=== PATIENT | male | born 1950 | race African-American/Black ===

== ENCOUNTER 2017-05-27 20:07 | Emergency (ER) | payer MEDICARE, OTHER ==
[~2017-05-27] VITALS: Ht 188 cm; Wt 92.5 kg
[2017-05-27 20:15] VITALS: BP 169/100
[2017-05-27 21:35] LABS: BACTERIA,URINE 0 /HPF (0-FEW); BILIRUBIN,URINE NEG (NEG); CLARITY,URINE CLEAR; COLOR,URINE YELLOW; GLUCOSE,URINE NEG (NEG); NITRITE,URINE NEG (NEG); RBC,URINE 20-40 /HPF (0-2); SQUAMOUS EPITHELIAL CELL,UR OCC /LPF; UROBILINOGEN,URINE 0.2 mg/dL (0.2 mg/dL); WBC,URINE RARE /HPF (0-4)
--- NOTE | 2017-05-27 21:47 | PHYS DOC ---
General Chief Complaint: URINARY RETENTION Stated Complaint: UNABLE TO URINATE Time Seen by MD: 20:12 Source: patient Exam Limitations: no limitations Problems: History of Present Illness Initial Comments Patient is a 66-year-old male who comes in the ED complaining of urinary retention. Patient states that he has history of BPH and family history of prostate cancer. He follows with a urologist at and has had some urinary hesitancy symptoms in the past but never any retention. He states that he's been unable to pass anything but very small amounts of urine for the past 6 hours. He complains of lower abdominal fullness and discomfort described as moderate to severe worse with certain positions better he presumes after voiding. He denies any urinary discharge no nausea vomiting no fever chills chest pain or trouble breathing. No pre-arrival treatment on arrival his blood pressure is elevated 169/100 and he appears to be very uncomfortable. Patient denies unexplained weight loss and night sweats, denies hematuria. Timing/Duration: 4-6 hours Severity: severe Modifying Factors: worse with movement, improves with other Associated Symptoms: other Past Medical History Medical History: other (BPH) Surgical History: other (foot surgery) Social History Smoker: cigarettes Alcohol: occasionally Drugs: none Review of Systems Constitutional: denies chills, denies diaphoresis, denies malaise Respiratory: denies cough, denies shortness of breath Cardiovascular: denies chest pain, denies palpitations, denies syncope Gastrointestinal: see HPI Genitourinary: see HPI Musculoskeletal: denies back pain, denies joint swelling, denies neck pain Psychiatric/Neurological: denies headache, denies numbness, denies paresthesia Hematologic/Lymphatic: denies blood clots, denies easy bleeding, denies easy bruising Physical Exam General Appearance: WD/WN, moderate distress Ear, Nose, Throat: hearing grossly normal, normal ENT inspection Neck: non-tender, supple Respiratory: normal breath sounds, no respiratory distress Cardiovascular: normal peripheral pulses, regular rate, rhythm Gastrointestinal: normal bowel sounds, no organomegaly, no pulsatile mass, other (suprapubic tenderness and distention relieved by bladder drainage) Back: no CVA tenderness, no vertebral tenderness Extremities: normal range of motion, non-tender Neurologic/Psychiatric: snow maker II-XII nml as tested, no motor/sensory deficits, alert, oriented x 3 Orders, Labs, Meds RN inserted Coates with rapid 1200 mL urine output. Urinalysis positive moderate blood Patient rechecked after urine output decreased. He reports complete resolution of his symptoms. I discussed options of leaving Coates in place to be removed by his urologist versus Coates removal here and return if symptoms worsen. Patient states that he called his urologist earlier today and intends to follow-up with him tomorrow. He requests removal of the Coates now he will return as needed. I discussed smoking cessation as well as signs and symptoms to monitor and urgent indications to return. Patient's questions were answered and he expressed agreement and understanding with the treatment plan. Departure Time of Disposition: 21:45 Disposition: 01 HOME, SELF-CARE Diagnosis: urinary retention, hematuria Condition: IMPROVED Patient Instructions: Urinary Retention, Acute, Male, [id number] Additional Instructions: Continue current medications. 1200+ ML urine output. As discussed you have requested that we remove the Coates catheter and you intend to follow-up with your urologist tomorrow. The blood in your urine is likely due to the catheter insertion but needs to be followed up on. If you're not able to get in with your urologist tomorrow then follow-up with Dr. Galindo or return to the emergency department. PEDRO LUIS DAVIES DO May 27, 2017 21:47
[2017-05-28] MEDS ORDERED: CIPR250T30 PO (10:04)
== END 2017-05-27 21:58 | disposition home or self-care (01) ==
LOC: ER 20:07
DX: R33.9 Retention of urine, unspecified (principal); R31.9 Hematuria, unspecified; F17.210 Nicotine dependence, cigarettes, uncomplicated; N40.1 Benign prostatic hyperplasia with lower urinary tract symptoms
CPT/HCPCS: 51702; 81001; 99284-25

== ENCOUNTER 2017-05-28 08:55 | Emergency (ER) | payer MEDICARE, OTHER ==
[~2017-05-28] VITALS: Ht 188 cm; Wt 92.5 kg
[2017-05-28] MEDS ORDERED: CIPR250T30 PO (10:04)
--- NOTE | 2017-05-28 10:04 | PHYS DOC ---
Past History Past Medical History: Prostatitis, Other Additional Past Medical Histor: BPH Past Surgical History: Other Alcohol Use: Occasionally Drug Use: None Adult General Chief Complaint Chief Complaint: URINARY RETENTION HPI HPI 66-year-old male patient with history of enlarged prostate state he was not able to urinate since yesterday morning and was seen in this emergency room last night and had Coates catheter placement with 1400 mL urine output. Patient sent home without urine catheter but was not able to urinate and returned to ER because was not able to get to his urologist. Patient complaining of discomfort feeling in lower abdomen without fever and chills, nausea and vomiting, shortness of breath. Patient currently taking medication for BPH given by his urologist at [facility]. Review of Systems Review of Systems Constitutional: Denies fever or chills [] Eyes: Denies change in visual acuity, redness, or eye pain [] HENT: Denies nasal congestion or sore throat [] Respiratory: Denies cough or shortness of breath [] Cardiovascular: No additional information not addressed in HPI [] GI: Denies abdominal pain, nausea, vomiting, bloody stools or diarrhea [] : Reports urinary retention Musculoskeletal: Denies back pain or joint pain [] Integument: Denies rash or skin lesions [] Neurologic: Denies headache, focal weakness or sensory changes [] Endocrine: Denies polyuria or polydipsia [] All other systems were reviewed and found to be within normal limits, except as documented in this note. Allergies Allergies Allergies Coded Allergies Type Severity Reaction Last Updated Verified typhoid vaccine Allergy Unknown 05/28/17 Yes Physical Exam Physical Exam Constitutional: Well developed, well nourished, mild distress, non-toxic appearance. [] HENT: Normocephalic, atraumatic, bilateral external ears normal, oropharynx moist, no oral exudates, nose normal. [] Eyes: PERRLA, EOMI, conjunctiva normal, no discharge. [] Neck: Normal range of motion, no tenderness, supple, no stridor. [] Cardiovascular:Heart rate regular rhythm, no murmur [] Lungs & Thorax: Bilateral breath sounds clear to auscultation [] Abdomen: Bowel sounds normal, soft, no tenderness, no masses, no pulsatile masses, mild guarding in suprapubic area. [] Skin: Warm, dry, no erythema, no rash. [] Back: No tenderness, no CVA tenderness. [] Extremities: No tenderness, no cyanosis, no clubbing, ROM intact, no edema. [] Neurologic: Alert and oriented X 3, normal motor function, normal sensory function, no focal deficits noted. [] Psychologic: Affect normal, judgement normal, mood normal. [] EKG EKG [] Radiology/Procedures Radiology/Procedures [] Course & Med Decision Making Course & Med Decision Making Pertinent Labs reviewed. (See chart for details) 66-year-old male patient with history of BPH and is sent urinary retention in ER visit last night presented to ER with another episode of urinary retention since he left the hospital. Coates catheter was placed and 1100 mL of nonbloody urine was drained gradually and patient felt better. UA did not show infection but prophylactic Cipro was started and patient instructed to follow up with his urologist in 2 or 3 days. Dragon Disclaimer Dragon Disclaimer This electronic medical record was generated, in whole or in part, using a voice recognition dictation system. Departure Departure: Impression: Primary Impression: Acute urinary retention Additional Impressions: History of BPH Hematuria Disposition: HOME, SELF-CARE (At 1000) Condition: IMPROVED Additional Instructions: Follow-up with your urologist at [facility] in 2-4 days Scripts Ciprofloxacin Hcl (CIPRO) 250 Mg Tablet 1 TAB PO BID, #6 TAB Prov: BETTE HORNER MD 05/28/17 Problem Qualifiers BETTE HORNER MD May 28, 2017 10:04
[2017-05-28 10:07] LABS: BILIRUBIN,URINE NEG (NEG); CLARITY,URINE CLEAR; COLOR,URINE YELLOW; GLUCOSE,URINE NEG (NEG); NITRITE,URINE NEG (NEG); UROBILINOGEN,URINE 0.2 mg/dL (0.2 mg/dL)
[2017-05-28 10:08] LABS: BACTERIA,URINE 0 /HPF (0-FEW); WBC,URINE 0 /HPF (0-4)
[2017-05-28 10:20] VITALS: BP 148/82
== END 2017-05-28 10:20 | disposition home or self-care (01) ==
LOC: ER 08:55
DX: R33.8 Other retention of urine (principal); R31.9 Hematuria, unspecified; N40.1 Benign prostatic hyperplasia with lower urinary tract symptoms; Z88.7 Allergy status to serum and vaccine
CPT/HCPCS: 51702; 81001; 99284-25

== ENCOUNTER 2017-06-08 08:31 | Emergency (ER) | payer MEDICARE, OTHER ==
[~2017-06-08] VITALS: Ht 188 cm; Wt 95.3 kg
[~2017-06-08 08:31] MED LIST: CIPR250T30 PO
--- NOTE | 2017-06-08 08:57 | ED.ADGEN ---
Past History Past Medical History: Prostatitis, Other Additional Past Medical Histor: BPH; urinary retention Past Surgical History: Other Alcohol Use: Occasionally Drug Use: None Adult General HPI HPI Patient is a 66 year old male with concerns about his aguilera. This is a 66-year-old male with recent placement of Aguilera catheter for urinary retention. He recently finished a course of antibiotics. He is concerned he may be having a urinary tract infection because he is findings discharge on his underwear. He is not having any pain. He has medicines to help with bladder spasms; aguilera is not causing him any discomfort. No fevers or abdominal pain. His Aguilera is draining clear urine. Review of Systems Review of Systems Constitutional: Denies fever or chills Respiratory: Denies cough or shortness of breath Cardiovascular: No additional information not addressed in HPI GI: Denies abdominal pain, nausea, vomiting, bloody stools or diarrhea : HPI Musculoskeletal: Denies back pain or joint pain Integument: Denies rash or skin lesions Neurologic: Denies headache, focal weakness or sensory changes Endocrine: Denies polyuria or polydipsia All other systems were reviewed and found to be within normal limits, except as documented in this note. Allergies Allergies Allergies Coded Allergies Type Severity Reaction Last Updated Verified typhoid vaccine Allergy Unknown 05/28/17 Yes Physical Exam Physical Exam Constitutional: Well developed, well nourished, no acute distress, non-toxic appearance. HENT: Normocephalic, atraumatic, Eyes: PERRLA, EOMI, conjunctiva normal, no discharge. Neck: Normal range of motion, Cardiovascular:Heart rate regular rhythm, no murmur Lungs & Thorax: Bilateral breath sounds clear to auscultation Abdomen: Bowel sounds normal, soft, no tenderness, no masses, no pulsatile masses. Normal uncircumcised male genitalia; foreskin in normal position. No signs of balinitis. Skin: Warm, dry, no erythema, no rash. Back: No tenderness, no CVA tenderness. Extremities: No tenderness, no cyanosis, no clubbing, ROM intact, no edema. Neurologic: Alert and oriented X 3, Psychologic: Affect normal, judgement normal, mood normal. Current Patient Data Vital Signs Vital Signs Date Time Temp Pulse Resp B/P (MAP) Pulse Ox O2 Delivery O2 Flow Rate FiO2 06/08/17 08:40 97.8 90 20 97 Room Air Lab Results Laboratory Tests Test 06/08/17 08:50 Urine Collection Type Unknown Urine Color Yellow Urine Clarity Clear Urine pH 5.5 Urine Specific [place] 1.010 Urine Protein Trace (NEG-TRACE) Urine Glucose (UA) 100 mg/dL (NEG) Urine Ketones (Stick) Neg mg/dL (NEG) Urine Blood Large (NEG) Urine Nitrite Neg (NEG) Urine Bilirubin Neg (NEG) Urine Urobilinogen Dipstick 0.2 mg/dL (0.2 mg/dL) Urine Leukocyte Esterase Trace (NEG) Urine RBC 20-40 /HPF (0-2) Urine WBC 1-4 /HPF (0-4) Urine Squamous Epithelial Cells Occ /LPF Urine Bacteria Few /HPF (0-FEW) Urine Mucus Slight /LPF EKG EKG [] Radiology/Procedures Radiology/Procedures [] Course & Med Decision Making Course & Med Decision Making Pertinent Labs and Imaging studies reviewed. (See chart for details) 55 ML of urine on bladder scan, thus no retention. Will check urine. UA with few bacteria. I will place on Bactrim BID for 7 days. Ask for PMD follow up in 2-3 days. I do not see an indication for labs today other than UA. Dx: urinary retention, UTI Final Impression Final Impression Urinary retention, UTI[] Problems: Dragon Disclaimer Dragon Disclaimer This electronic medical record was generated, in whole or in part, using a voice recognition dictation system. JEANINE YAN MD Jun 08, 2017 08:57
[2017-06-08 09:12] LABS: BILIRUBIN,URINE NEG (NEG); CLARITY,URINE CLEAR; COLOR,URINE YELLOW; GLUCOSE,URINE 100 mg/dL (NEG)
[2017-06-08 09:13] LABS: BACTERIA,URINE FEW /HPF (0-FEW); NITRITE,URINE NEG (NEG); RBC,URINE 20-40 /HPF (0-2); SQUAMOUS EPITHELIAL CELL,UR OCC /LPF; UROBILINOGEN,URINE 0.2 mg/dL (0.2 mg/dL)
[2017-06-08] MEDS ORDERED: SULF1TAB24 PO (09:20)
[2017-06-08 09:30] VITALS: BP 151/73
== END 2017-06-08 09:33 | disposition home or self-care (01) ==
LOC: ER 08:31
DX: N39.0 Urinary tract infection, site not specified (principal); N40.1 Benign prostatic hyperplasia with lower urinary tract symptoms; Z88.7 Allergy status to serum and vaccine
CPT/HCPCS: 81001; 87086; 87186; 99284

== ENCOUNTER 2019-07-09 15:05 | Emergency (ER) | payer MEDICARE, OTHER ==
[~2019-07-09] VITALS: Ht 188 cm; Wt 94.3 kg
[~2019-07-09 15:05] MED LIST changes: +SULF1TAB24 PO
--- NOTE | 2019-07-09 16:02 | PHYS DOC ---
Past History Past Medical History: Other Additional Past Medical Histor: ENLARGED PROSTATE Past Surgical History: Other Additional Past Surgical Histo: 2 KNEE, HAMMERTOE Additional Smoking Information: 1/3 PACK Alcohol Use: Occasionally Drug Use: None Adult General Chief Complaint Chief Complaint: URINARY RETENTION [facility] 68-year-old male presents with urinary retention. When he woke up this morning he was feeling fine. At work, he had the urge to urinate and could only go small amount of the time. This occurred several times. The patient had increasing lower abdominal discomfort. He has had this before so he assumed he was retaining urine and came emergency room. He has been feeling fine. No other symptoms. He denies fever or chills. He did recently start Flexeril has been taking them for about 4 days. Review of Systems Review of Systems Constitutional: Denies fever or chills [] Eyes: Denies change in visual acuity, redness, or eye pain [] HENT: Denies nasal congestion or sore throat [] Respiratory: Denies cough or shortness of breath [] Cardiovascular: No additional information not addressed in HPI [] GI: Denies abdominal pain, nausea, vomiting, bloody stools or diarrhea [] : Urinary retention[] Musculoskeletal: Denies back pain or joint pain [] Integument: Denies rash or skin lesions [] Neurologic: Denies headache, focal weakness or sensory changes [] Endocrine: Denies polyuria or polydipsia [] All other systems were reviewed and found to be within normal limits, except as documented in this note. Allergies Allergies Allergies Coded Allergies Type Severity Reaction Last Updated Verified typhoid vaccine Allergy Unknown 05/28/17 Yes Physical Exam Physical Exam Constitutional: Well developed, well nourished, no acute distress, non-toxic appearance. [] HENT: Normocephalic, atraumatic, bilateral external ears normal, oropharynx moist, no oral exudates, nose normal. [] Eyes: PERRLA, EOMI, conjunctiva normal, no discharge. [] Neck: Normal range of motion, no tenderness, supple, no stridor. [] Cardiovascular:Heart rate regular rhythm, no murmur [] Lungs & Thorax: Bilateral breath sounds clear to auscultation [] Abdomen: Bowel sounds normal, soft, no tenderness, no masses, no pulsatile masses. [] Skin: Warm, dry, no erythema, no rash. [] Back: No tenderness, no CVA tenderness. [] Extremities: No tenderness, no cyanosis, no clubbing, ROM intact, no edema. [] Neurologic: Alert and oriented X 3, normal motor function, normal sensory funct ion, no focal deficits noted. [] Psychologic: Affect normal, judgement normal, mood normal. [] : aguilera catheter in place Current Patient Data Vital Signs Vital Signs Date Time Temp Pulse Resp B/P (MAP) Pulse Ox O2 Delivery O2 Flow Rate FiO2 07/09/19 15:10 97.6 93 20 97 Room Air EKG EKG [] Radiology/Procedures Radiology/Procedures [] Course & Med Decision Making Course & Med Decision Making Pertinent Labs and Imaging studies reviewed. (See chart for details) The patient's bladder scan showed 968 mL. I was away from the emergency room at the hospital for an intubation and so the staff went ahead and placed a Aguilera. I was unable to physical exam until after the catheter. The patient did not have any current pain on exam. He had good output in the Aguilera catheter. Basic labs and urinalysis are pending. The patient would like to leave the catheter in until he sees urology. He made an appointment this morning before coming to the ER. Patient's labs are unremarkable. His urinalysis is negative for infection. He is stable for discharge at this time. [] Dragon Disclaimer Dragon Disclaimer This electronic medical record was generated, in whole or in part, using a voice recognition dictation system. Departure Departure: Impression: Primary Impression: Urinary retention Disposition: HOME, SELF-CARE Condition: IMPROVED Referrals: PCP,UNKNOWN (PCP) Patient Instructions: Aguilera Catheter Care, Adult, Urinary Retention, Acute, Male, [id number] MERRY MCNAIR DO Jul 09, 2019 16:02
[2019-07-09 16:30] LABS: BASO # 0.1 x10^3/uL (0.0-0.2); BASO % 1 % (0-3); EOS # 0.1 x10^3/uL (0.0-0.7); EOS % 1 % (0-3); HEMATOCRIT 41.5 % (39.0-53.0); HEMOGLOBIN 13.7 g/dL (13.0-17.5); LYMPH # 1.6 x10^3/uL (1.0-4.8); LYMPH % 20 % (24-48); MEAN CORPUSCULAR HEMOGLOBIN 31 pg (25-35); MEAN CORPUSCULAR HGB CONC 33 g/dL (31-37); MEAN CORPUSCULAR VOLUME 93 fL (79-100); MONO # 0.5 x10^3/uL (0.0-1.1); MONO % 6 % (0-9); NEUT # 5.8 x10^3uL (1.8-7.7); NEUT % 73 % (31-73); PLATELET COUNT 261 x10^3/uL (140-400); RED BLOOD COUNT 4.47 x10^6/uL (4.30-5.70); RED CELL DISTRIBUTION WIDTH 13.9 % (11.5-14.5)
[2019-07-09 16:43] LABS: CREATININE 0.9 mg/dL (0.7-1.3); GFR 101.2; POTASSIUM 4.6 mmol/L (3.5-5.1)
[2019-07-09 16:45] LABS: BACTERIA,URINE 0 /HPF (0-FEW); BILIRUBIN,URINE NEG (NEG); CLARITY,URINE HAZY; COLOR,URINE AMBER; GLUCOSE,URINE NEG (NEG); NITRITE,URINE NEG (NEG); SQUAMOUS EPITHELIAL CELL,UR OCC /LPF; UROBILINOGEN,URINE 0.2 mg/dL (0.2 mg/dL); WBC,URINE 0 /HPF (0-4)
[2019-07-09 16:49] LABS: ALBUMIN 3.6 g/dL (3.4-5.0); ALBUMIN/GLOBULIN RATIO 1.2 (1.0-1.7); TOTAL BILIRUBIN 0.6 mg/dL (0.2-1.0); TOTAL PROTEIN 6.7 g/dL (6.4-8.2)
[2019-07-09 17:35] VITALS: BP 147/81
== END 2019-07-09 17:36 | disposition home or self-care (01) ==
LOC: ER 15:05
DX: R33.9 Retention of urine, unspecified (principal); R39.15 Urgency of urination; F17.200 Nicotine dependence, unspecified, uncomplicated; Z88.7 Allergy status to serum and vaccine
CPT/HCPCS: 36415; 51702; 80053; 81001; 85025; 99284

== ENCOUNTER → 2019-10-07 | Outpatient (CLI) | payer MEDICARE, OTHER ==
--- NOTE | 2019-10-07 15:47 | RAD ---
Left lower extremity venous doppler ultrasound History: Left lower extremity swelling Comparison: None Findings: Multiple grayscale, color, and duplex spectral analysis sonographic images were acquired of the left lower extremity veins to evaluate for the presence of DVT. There is normal phasicity. Normal compression, color-flow, and augmentation is demonstrated from the left common femoral to the popliteal veins. There is normal color flow of the proximal greater saphenous and profunda femoris veins. There is normal color flow of segments of the calf veins. Impression: 1. There is no evidence of deep venous thrombosis from the left common femoral to the popliteal veins. Electronically signed by: Sterling López MD (10/07/2019 3:44 PM) [id number]
--- NOTE | 2019-10-07 15:53 | RAD ---
PA and lateral views of the chest. Comparison: None. Indication: Adenopathy, smoking history Findings: Normal lung volume. No focal airspace disease. Bilateral pulmonary vascular fullness. No pleural effusion. No pneumothorax. The cardiomediastinal silhouette is normal in appearance. The great vessels are normal. No acute osseous abnormality. Impression: Bilateral pulmonary vascular fullness may relate to pulmonary edema/pulmonary hypertension. No focal consolidation. Electronically signed by: Adal Darling MD (10/07/2019 3:50 PM) [id number]
== END ==
LOC: US 15:12
PROVIDERS: ATTEND Specialist
DX: R59.9 Enlarged lymph nodes, unspecified (principal); F17.200 Nicotine dependence, unspecified, uncomplicated; M79.89 Other specified soft tissue disorders
CPT/HCPCS: 71046; 93971

== ENCOUNTER 2020-09-01 16:42 | Emergency (ER) | payer MEDICARE, OTHER ==
[~2020-09-01] VITALS: Ht 188 cm; Wt 87.3 kg
[2020-09-01 16:54] VITALS: BP 183/85
[2020-09-01] MEDS ORDERED: 0.9 % SODIUM CHLORIDE 10 ML DISP.SYRIN. IV PRN (17:00)
[2020-09-01] MEDS ORDERED: HEPARIN 25,000UTS/250ML PREMIX 250 ML IV ONE (17:07)
--- NOTE | 2020-09-01 17:09 | EKG ---
[address] [address] Test Date: 2020-09-01 Test Time: 16:50:56 Pat Name: ASMITA WHALEN Department: Room: Gender: M Newcomer Hostess: : 1950 Requested By: KELI ANDERSON Order Number: [id number] Reading MD: Measurements Intervals [place] Rate: 66 P: 42 [place]: 154 QRS: 41 QRSD: 132 T: 27 QT: 398 QTc: 419 Interpretive Statements SINUS RHYTHM RIGHT BUNDLE BRANCH BLOCK ABNORMAL ECG RI6.02 No previous ECG available for comparison
--- NOTE | 2020-09-01 17:11 | PHYS DOC ---
Past History Past Medical History: Other Additional Past Medical Histor: ENLARGED PROSTATE (KELI VELASCO DO) Past Surgical History: Other Additional Past Surgical Histo: 2 KNEE, HAMMERTOE (KRISTAKELI Betsey DE LA ROSA) Alcohol Use: Rarely Drug Use: None (KRISTAKELI Betsey DE [place] ROSA) General Adult EDM: Chief Complaint: CHEST PAIN HPI: HPI: Patient is a [age] year old [sex] who presents with [] (KELI VELASCO ) HPI: 70-year-old male presents to the emergency department with complaints of intermittent chest pain that started 2 weeks ago. Patient states he first noted some left-sided chest pain that he rated a 2/10 on 1-10 pain scale that he felt was more like indigestion because it seemed to go away after he took a 20 mg Pepcid. Patient states that these chest pain episodes have been coming back daily for the past 2 weeks, has denied any nausea vomiting or diaphoretic episodes or shortness of breath with these symptoms. States that it seemed to have gone away after taking 20 mg Pepcid or other uwgl-tlj-docdkah type indigestion medication. Today however patient states after his dental appointment at noon he noticed the same pain presented self, took another 20 mg Pepcid p.o., the pain did not go away and seemed to worsen throughout the day. Patient states at 1600 it was at its worst which she rates a 2/10 pain and/or tightness, took an additional 20 mg Pepcid p.o. noticed that there was no relief in symptoms and came to the emergency department for evaluation. Patient describes his chest pain as a pressure and not a pain. This pressure does not radiate, he has not experienced any nausea, vomiting, diarrhea, or constipation. Patient does not experience any increase or decrease in pain with movement position deep breathing or palpation type pressure to his chest. Patient denies shortness of breath, denies chest congestion or nasal congestion, denies rashes to his skin, denies increased thirst or increased urination. Patient denies homicidal or suicidal ideation. Patient's dates a surgical history of prostate reduction at [facility] earlier this year reports he is on a medication for overactive bladder that he cannot remember the name of, is on no other prescription medications or xvmm-blj-dzkwtzp medications. Patient states he has not taken an aspirin today. Patient reports he is seeing a records specialist at [facility] for lower extremity swelling, last seen 6 months ago and has an appointment next month with the same journeyman wireman. Patient denies any other physical complaints or physical injuries. (KELI ANDERSON APRN) Review of Systems: Review of Systems: Constitutional: Denies fever or chills Eyes: Denies change in visual acuity HENT: Denies nasal congestion or sore throat Respiratory: Denies cough or shortness of breath Cardiovascular: Denies chest pain or edema GI: Denies abdominal pain, nausea, vomiting, bloody stools or diarrhea : Denies dysuria Musculoskeletal: Denies back pain or joint pain Integument: Denies rash Neurologic: Denies headache, focal weakness or sensory changes Endocrine: Denies polyuria or polydipsia Lymphatic: Denies swollen glands Psychiatric: Denies depression or anxiety (KELI VELASCO DO) Review of Systems: 14 body systems of review of systems have been reviewed. See HPI for pertinent positives and negative responses, otherwise all other systems are negative, nonpertinent or noncontributory. (KELI ANDERSON APRN) Current Medications: Current Meds: Current Medications Medications (Trade) Dose Ordered Sig/Millie Start Time Stop Time Status Last Admin Dose Admin Aspirin (Aspirin Chewable) 324 mg 1X ONCE 09/01/20 17:00 09/01/20 17:01 UNV Heparin Sodium (Porcine) (Heparin Sodium) 4,000 unit 1X ONCE 09/01/20 17:00 09/01/20 17:01 UNV Sodium Chloride (Normal Saline Flush) 10 ml QSHIFT PRN 09/01/20 17:00 UNV (KELI VELASCO DO) Current Meds: Medication for overactive bladder (KELI ANDERSON APRN) Allergies: Allergies: Allergies Coded Allergies Type Severity Reaction Last Updated Verified typhoid vaccine Allergy Unknown 05/28/17 Yes (KELI VELASCO DO) Physical Exam: PE: Constitutional: Well developed, well nourished, no acute distress, non-toxic appearance. [] HENT: Normocephalic, atraumatic, bilateral external ears normal, oropharynx moist, no oral exudates, nose normal. [] Eyes: PERRLA, EOMI, conjunctiva normal, no discharge. [] Neck: Normal range of motion, no tenderness, supple, no stridor. [] Cardiovascular:Heart rate regular rhythm, no murmur [] Lungs & Thorax: Bilateral breath sounds clear to auscultation [] Abdomen: Bowel sounds normal, soft, no tenderness, no masses, no pulsatile masses. [] Skin: Warm, dry, no erythema, no rash. [] Back: No tenderness, no CVA tenderness. [] Extremities: No tenderness, no cyanosis, no clubbing, ROM intact, no edema. [] Neurologic: Alert and oriented X 3, normal motor function, normal sensory function, no focal deficits noted. [] Psychologic: Affect normal, judgement normal, mood normal. [] (KELI VELASCO DO) PE: Constitutional: Well developed, well nourished, no acute distress, non-toxic appearance. 70-year-old male in no apparent distress. HENT: Normocephalic, atraumatic, bilateral external ears normal, oropharynx moist, no oral exudates, nose normal. Eyes: PERRLA, EOMI, conjunctiva normal, no discharge. Neck: Normal range of motion, no tenderness, supple, no stridor. Cardiovascular:Heart rate regular rhythm, no murmur, heart sounds S1-S2 to auscultation. Lungs & Thorax: Bilateral breath sounds clear to auscultation all lung moreno. Chest discomfort is not reproducible to palpation or movement of upper extremities, or deep inspiration or expiration. Abdomen: Bowel sounds normal, soft, no tenderness, no masses, no pulsatile masses. Skin: Warm, dry, no erythema, no rash. Back: No tenderness, no CVA tenderness. Extremities: No tenderness, no cyanosis, no clubbing, ROM intact, no edema. Neurologic: Alert and oriented X 3, normal motor function, normal sensory function, no focal deficits noted. Psychologic: Affect normal, judgement normal, mood normal. (KELI ANDERSON APRN) Current Patient Data: Vital Signs: Vital Signs Date Time Temp Pulse Resp B/P (MAP) Pulse Ox O2 Delivery O2 Flow Rate FiO2 09/01/20 16:54 98.0 67 16 183/85 (117) 99 Room Air (KELI VELASCO DO) EKG: EKG: @ 1650 NSR at 66bpm, ST elevation III and aVF and reciprocal depressions in I and aVL and V4-V6, t wave inversion V2, QRS 132ms, QT/QTc 398/419ms, RBBB (KELI VELASCO DO) Radiology/Procedures: Radiology/Procedures: [] (KELI VLEASCO DO) Heart Score: Risk Factors: Risk Factors: DM, Current or recent (<one month) smoker, HTN, HLP, family history of CAD, obesity. Risk Scores: Score 0 - 3: 2.5% MACE over next 6 weeks - Discharge Home Score 4 - 6: 20.3% MACE over next 6 weeks - Admit for Clinical Observation Score 7 - 10: 72.7% MACE over next 6 weeks - Early Invasive Strategies (KELI VELASCO DO) C/O Chest Pain: Yes HEART Score for Chest Pain: HEART Score for Chest Pain Response (Comments) Value History Moderately Suspicious [address] Depression 2 Age > 65 2 Risk Factors No Risk Factors 0 Total 5 (KELI ANDERSON APRN) Course & Med Decision Making: Course & Med Decision Making Pertinent Labs and Imaging studies reviewed. (See chart for details) [] (KELI VELASCO DO) Course & Med Decision Making 70-year-old male, vital signs reviewed, presents to the emergency department concern for chest discomfort. Physical examination concerning for cardiorespiratory process, a cardiorespiratory ED investigation was initiated. EKG was concerning for acute STEMI, reviewed EKG with ED attending Dr. Velasco who agreed this patient should be sent to nearest [facility] for acute STEMI. A STEMI was activated with [facility] at 1655. Discussed patient case with [facility] journeyman wireman Dr. Figueredo who agreed to accept patient as STEMI transfer to [facility], EMS was alerted for emergent transfer to [facility]. Discussed transfer to [facility] with patient who was amenable to this plan. Called and discussed patient case with inpatient physician Dr. Booker who agreed to accept patient in transfer with records specialist consult. Patient labs were pending at time of transfer, patient's troponin-I not available at time of transfer therefore could not complete HEART score, patient was given 324 aspirin in the ED prior to transfer, patient was given heparin bolus in ED prior to transfer, heparin drip was not initiated related to Dr. Figueredo recommendation. Transfer forms were completed, patient was transferred to [facility] via EMS. (KELI ANDERSON APRN) Dragon Disclaimer: Dragon Disclaimer: This electronic medical record was generated, in whole or in part, using a voice recognition dictation system. (KELI VELASCO DO) Departure Departure: Impression: Primary Impression: STEMI (ST elevation myocardial infarction) Qualified Codes: I21.3 - ST elevation (STEMI) myocardial infarction of unspecified site Disposition: 02 DC/TRF OTHER SHORT TERM HOS ([facility]) Admitting Physician: Adonis Booker (Excepted patient in transfer, Dr. Figueredo excepted patient for transfer to cardiology [facility] at [facility].) (KELI ANDERSON APRN) Condition: GUARDED Referrals: BROOKLYNN HINTON MD (PCP) Critical Care Time Critical care time was 30 minutes which includes time at bedside, spent in discussion of patient's care with specialists and/or family members, with interpretation of laboratory and/or radiological studies and is exclusive of p rocedures. (KELI VELASCO DO) Attending Signature Attending Signature I have personally interviewed and examined the patient. All charts, labs, and imaging studies were reviewed. I agree with the PA/FUR CLIPPER's findings, exam, and plan. (KELI VELASCO DO) KELI VELASCO DO Sep 01, 2020 17:11 KELI ANDERSON APRN Sep 01, 2020 17:25
[2020-09-01] MEDS: HEPARIN for IV BOLUS 10,000 UNIT/10 ML VIAL. IV ONE (17:16)
[2020-09-01] MEDS: ASPIRIN CHEWABLE 81 MG TABLET. PO ONE (17:16)
[2020-09-01 17:19] LABS: BASO # 0.1 x10^3/uL (0.0-0.2); BASO % 1 % (0-3); EOS # 0.1 x10^3/uL (0.0-0.7); EOS % 1 % (0-3); HEMATOCRIT 41.1 % (39.0-53.0); HEMOGLOBIN 13.6 g/dL (13.0-17.5); LYMPH # 3.2 x10^3/uL (1.0-4.8); LYMPH % 41 % (24-48); MEAN CORPUSCULAR HEMOGLOBIN 30 pg (25-35); MEAN CORPUSCULAR HGB CONC 33 g/dL (31-37); MEAN CORPUSCULAR VOLUME 91 fL (79-100); MONO # 0.6 x10^3/uL (0.0-1.1); MONO % 8 % (0-9); NEUT # 3.9 x10^3uL (1.8-7.7); NEUT % 49 % (31-73); PLATELET COUNT 264 x10^3/uL (140-400); RED BLOOD COUNT 4.49 x10^6/uL (4.30-5.70); WHITE BLOOD COUNT 7.9 x10^3/uL (4.0-11.0)
[2020-09-01 17:33] LABS: ANION GAP 8 (6-14); BLOOD UREA NITROGEN 11 mg/dL (8-26); BUN/CREATININE RATIO 14 (6-20); CALCIUM 9.4 mg/dL (8.5-10.1); CARBON DIOXIDE 29 mmol/L (21-32); CHLORIDE 109 mmol/L (98-107); CREATININE 0.8 mg/dL (0.7-1.3); GFR 115.3; GLUCOSE 90 mg/dL (70-99); POTASSIUM 4.3 mmol/L (3.5-5.1); SODIUM 146 mmol/L (136-145)
[2020-09-01 17:50] LABS: ALBUMIN 3.9 g/dL (3.4-5.0); ALBUMIN/GLOBULIN RATIO 1.1 (1.0-1.7); ALK PHOS 86 U/L (46-116); DIRECT BILIRUBIN 0.2 mg/dL (0.0-0.2); LIPASE 60 U/L (73-393); TOTAL BILIRUBIN 0.7 mg/dL (0.2-1.0); TOTAL PROTEIN 7.6 g/dL (6.4-8.2)
[2020-09-01 19:34] LABS: ALT (SGPT) 19 U/L (16-63); AST (SGOT) 16 U/L (15-37)
== END 2020-09-01 17:13 | disposition short-term general hospital (02) ==
LOC: ER 16:42
DX: I21.3 ST elevation (STEMI) myocardial infarction of unspecified site (principal); Z88.7 Allergy status to serum and vaccine
CPT/HCPCS: 36415; 80053; 80076; 82553; 83690; 83735; 83880; 84443; 84484; 85025; 85379; 85610; 85730; 93005; 96374; 99291; J1644

== ENCOUNTER 2020-10-21 09:36 | Observation (INO) | payer MEDICARE, OTHER ==
[~2020-10-21] VITALS: Ht 188 cm; Wt 81.6 kg
[2020-10-21 10:52] LABS: BASO % 1 % (0-3); EOS % 0 % (0-3); HEMATOCRIT 43.4 % (39.0-53.0); HEMOGLOBIN 14.5 g/dL (13.0-17.5); LYMPH # 2.6 x10^3/uL (1.0-4.8); LYMPH % 35 % (24-48); MEAN CORPUSCULAR HEMOGLOBIN 31 pg (25-35); MEAN CORPUSCULAR HGB CONC 33 g/dL (31-37); MEAN CORPUSCULAR VOLUME 92 fL (79-100); MONO # 0.7 x10^3/uL (0.0-1.1); MONO % 9 % (0-9); NEUT # 4.1 x10^3uL (1.8-7.7); NEUT % 55 % (31-73); PLATELET COUNT 291 x10^3/uL (140-400); RED BLOOD COUNT 4.74 x10^6/uL (4.30-5.70); RED CELL DISTRIBUTION WIDTH 13.9 % (11.5-14.5); WHITE BLOOD COUNT 7.4 x10^3/uL (4.0-11.0)
[2020-10-21 11:05] LABS: CALCIUM 9.5 mg/dL (8.5-10.1); CREATININE 1.2 mg/dL (0.7-1.3); GFR 72.2; POTASSIUM 4.2 mmol/L (3.5-5.1)
[2020-10-21 11:15] LABS: PHOSPHORUS 3.6 mg/dL (2.6-4.7)
[2020-10-21 11:28] LABS: ALBUMIN 4.2 g/dL (3.4-5.0); ALBUMIN/GLOBULIN RATIO 1.2 (1.0-1.7); TOTAL PROTEIN 7.7 g/dL (6.4-8.2)
--- NOTE | 2020-10-21 11:55 | RAD ---
EXAM: Chest, 2 views. HISTORY: Syncope. COMPARISON: 10/07/2019. FINDINGS: 2 views of chest are obtained. There is no infiltrate, pleural effusion or pneumothorax. Th e heart is normal in size. There is hyperinflation due to inspiratory effort or emphysema. IMPRESSION: No acute pulmonary finding. Electronically signed by: Divya Fox MD (10/21/2020 11:52 AM) [id number]
--- NOTE | 2020-10-21 11:55 | EKG ---
[address] [address] Test Date: 2020-10-21 Test Time: 10:04:51 Pat Name: ASMITA WHALEN Department: Room: Gender: M Acute Care Registered Nurse: : 1950 Requested By: UZIEL MEMBRENO Order Number: [id number] Reading MD: Measurements Intervals [place] Rate: 62 P: 52 MD: 148 QRS: 76 QRSD: 144 T: 57 QT: 434 QTc: 443 Interpretive Statements SINUS RHYTHM RIGHT BUNDLE BRANCH BLOCK ABNORMAL ECG RI6.02 No previous ECG available for comparison
[2020-10-21] MEDS ORDERED: IV NORMAL SALINE 1,000ML 1,000 ML IV ONE (12:00)
--- NOTE | 2020-10-21 12:09 | EKG ---
[address] [address] Test Date: 2020-10-21 Test Time: 10:49:38 Pat Name: ASMITA WHALEN Department: Room: Gender: M Cigar Head Holer: : 1950 Requested By: UZIEL MEMBRENO Order Number: [id number] Reading MD: Measurements Intervals [place] Rate: 66 P: 61 DC: 154 QRS: 80 QRSD: 134 T: 67 QT: 426 QTc: 448 Interpretive Statements SINUS RHYTHM RIGHT BUNDLE BRANCH BLOCK ABNORMAL ECG RI6.02 No previous ECG available for comparison
[2020-10-21] MEDS ORDERED: CONTRAST GIVEN. MC PRN (12:15)
[2020-10-21] MEDS ORDERED: IOHEXOL 350 MG/ML 100 ML VIAL. IV ONE (12:15)
[2020-10-21 12:22] LABS: BILIRUBIN,URINE NEG (NEG); CLARITY,URINE CLEAR; COLOR,URINE YELLOW; GLUCOSE,URINE NEG (NEG)
[2020-10-21 12:23] LABS: BACTERIA,URINE 0 /HPF (0-FEW); NITRITE,URINE NEG (NEG); RBC,URINE 0 /HPF (0-2); SQUAMOUS EPITHELIAL CELL,UR OCC /LPF; UROBILINOGEN,URINE 0.2 mg/dL (0.2 mg/dL); WBC,URINE 0 /HPF (0-4)
--- NOTE | 2020-10-21 12:56 | RAD ---
EXAM: CT angiography, abdomen and pelvis of the chest with intravenous contrast. HISTORY: Syncope. TECHNIQUE: Computed tomographic images of the chest, abdomen and pelvis were obtained following the a dministration of intravenous contrast according to angiography protocol. Multiplanar reformatting was performed and three dimensional maximum intensity projection images were obtained. *One or more of the following individualized dose reduction techniques were utilized for this examina tion: 1. Automated exposure control. 2. Adjustment of the mA and/or kV according to patient size. 3. Use of iterative reconstruction technique. COMPARISON: None. FINDINGS: Chest: The aorta is normal in caliber. There is no aortic dissection. The aortic arch great vessels a re widely patent. No pathologically enlarged mediastinal or hilar lymph node is seen. There is no wai tral pulmonary embolism. There is heterogeneous masslike enlargement of the right thyroid lobe and th ere are multiple small left thyroid nodules. This results in slight leftward deviation of the trachea . There is no pneumothorax or pleural effusion. There is mild pulmonary emphysema with biapical pleur al parenchymal scarring. There are few tiny calcified granulomas. There is no infiltrate or suspiciou s pulmonary nodule. There is no suspicious osseous lesion or acute osseous finding. Abdomen and pelvis: There is a 7 mm suspected cyst within the posterior right hepatic lobe. There may also be a cyst within the right hepatic lobe near the falciform ligament. The gallbladder, pancreas, stomach and spleen are unremarkable. There is a heterogeneous enhancing left adrenal nodule measurin g 4.8 cm. There are benign-appearing bilateral renal cortical cysts. There is no solid-appearing bud l lesion or hydronephrosis. There is no appendicitis. There is distal colonic diverticulosis. There is asymmetric masslike thicke jean paul of the wall of the mid sigmoid:. There are calcifications in this location. There is no surround ing stranding to suggest acute colitis or diverticulitis. There are increased surrounding tiny nancy lonic lymph nodes in this distribution. The prostate is heterogeneously enlarged. The bladder is unre markable. There is no evidence of aortic aneurysm or dissection. There is aortobiiliac atherosclerosi s. There is no suspicious or acute finding involving the lumbar spine or bony pelvis. IMPRESSION: 1. No acute thoracic, abdominal or pelvic finding. 2. Eccentric wall thickening and calcification involving the mid sigmoid colon with multiple small presley rrounding pericolonic lymph nodes. The possibility of neoplasm is not excluded. The imaging appearanc e does not favor diverticulitis or colitis. Correlate with colonoscopy findings 3. 4.8 cm left adrenal nodule, possibly metastatic given the aforementioned findings within the sigmo id colon. The possibility of a primary adrenal malignancy is not excluded. 4. Heterogeneous masslike enlargement of the right thyroid lobe superimposed on multiple thyroid nodu les. This can be better assessed with a thyroid sonogram. 5. Mild pulmonary emphysema. 6. Small simple appearing renal cysts and hepatic cyst. Follow-up is not routinely performed for simp le cysts. 7. Heterogeneous enlargement of the prostate. Correlate with PSA levels. Electronically signed by: Divya Fox MD (10/21/2020 12:54 PM) [id number]
[2020-10-21] MEDS ORDERED: MORPHINE SULFATE 2 MG/ML DISP.SYRIN. IVP PRN (14:15)
[2020-10-21] MEDS ORDERED: ACETAMINOPHEN 325 MG TABLET PO PRN (14:15)
[2020-10-21] MEDS ORDERED: ONDANSETRON PF 4 MG/2 ML VIAL. IVP PRN (14:15)
--- NOTE | 2020-10-21 15:16 | PHYS DOC ---
Past History Past Medical History: Other Additional Past Medical Histor: ENLARGED PROSTATE Past Surgical History: Other Additional Past Surgical Histo: 2 KNEE, HAMMERTOE Smoking: Cigarettes Additional Smoking Information: 6 cigs a day Alcohol Use: Rarely Drug Use: None General Adult EDM: Chief Complaint: SYNCOPE HPI: HPI: Patient is a 70-year-old male coming in after a syncopal episode. Patient states that he had gotten up in the last thing he remembers was feeling "queasy" and going to the restroom to vomit. Patient states he then felt weak and went and sat on the couch, is unsure what happened next, found him slumped over on couch and states he took a while to wake up. Unknown how long he was unconscious for. Patient states he feels okay now. Denies any chest pain, headaches, vision changes. Patient has a history of overactive bladder, hypertension, GERD. Patient states he has a history of admission for chest pain with a clean heart cath. He has also had approximately 20 pound unintentional weight loss over the past 2 months. States he had a colonoscopy 2 weeks ago and had hyperplastic polyps removed and was instructed to repeat colonoscopy in 3 years. Denies any black or bloody stools. Review of Systems: Review of Systems: All other systems within normal limits except for as noted in the HPI Current Medications: Current Meds: Current Medications Medications (Trade) Dose Ordered Sig/Millie Start Time Stop Time Status Last Admin Dose Admin Info (Do NOT chart on this entry -- for MONITORING) 1 each PRN DAILY PRN 10/21/20 12:15 10/23/20 12:14 Iohexol (Omnipaque 350 Mg/ml) 100 ml 1X ONCE 10/21/20 12:15 10/21/20 12:16 DC 10/21/20 12:08 100 ML Sodium Chloride 1,000 ml @ 1,000 mls/hr 1X ONCE 10/21/20 12:00 10/21/20 12:59 DC 10/21/20 12:05 1,000 MLS/HR Allergies: Allergies: Allergies Coded Allergies Type Severity Reaction Last Updated Verified typhoid vaccine Allergy Unknown 05/28/17 Yes Physical Exam: PE: Constitutional: Well developed, well nourished, no acute distress, non-toxic appearance. [] HENT: Normocephalic, atraumatic, bilateral external ears normal, nose normal. [] Eyes: PERRLA, conjunctiva normal, no discharge. [] Neck: No rigidity, supple, no stridor. [] Cardiovascular: Regular rate and rhythm, brisk cap refill, symmetric radial and DP pulses, no carotid bruit [] Lungs & Thorax: Non labored symmetric respirations, no tachypnea or respiratory distress [] Abdomen: Soft, nondistended no tenderness or pulsatile masses. Skin: Warm, dry, no erythema, no rash. [] Back: Unremarkable Extremities: No deformities, range of motion grossly intact, no lower extremity edema [] Neurologic: Alert and oriented X 3, no focal deficits noted. [] Psychologic: Affect normal, judgement normal, mood normal. [] Current Patient Data: Labs: Laboratory Tests Test 10/21/20 10:06 10/21/20 10:28 10/21/20 11:15 10/21/20 13:45 Glucose (Fingerstick) 97 mg/dL (70-99) White Blood Count 7.4 x10^3/uL (4.0-11.0) Red Blood Count 4.74 x10^6/uL (4.30-5.70) Hemoglobin 14.5 g/dL (13.0-17.5) Hematocrit 43.4 % (39.0-53.0) Mean Corpuscular Volume 92 fL (79-100) Mean Corpuscular Hemoglobin 31 pg (25-35) Mean Corpuscular Hemoglobin Concent 33 g/dL (31-37) Red Cell Distribution Width 13.9 % (11.5-14.5) Platelet Count 291 x10^3/uL (140-400) Neutrophils (%) (Auto) 55 % (31-73) Lymphocytes (%) (Auto) 35 % (24-48) Monocytes (%) (Auto) 9 % (0-9) Eosinophils (%) (Auto) 0 % (0-3) Basophils (%) (Auto) 1 % (0-3) Neutrophils # (Auto) 4.1 x10^3uL (1.8-7.7) Lymphocytes # (Auto) 2.6 x10^3/uL (1.0-4.8) Monocytes # (Auto) 0.7 x10^3/uL (0.0-1.1) Eosinophils # (Auto) 0.0 x10^3/uL (0.0-0.7) Basophils # (Auto) 0.0 x10^3/uL (0.0-0.2) D-Dimer (Esther) 0.61 mg/L (0.00-0.50) H Sodium Level 139 mmol/L (136-145) Potassium Level 4.2 mmol/L (3.5-5.1) Chloride Level 100 mmol/L (98-107) Carbon Dioxide Level 29 mmol/L (21-32) Anion Gap 10 (6-14) Blood Urea Nitrogen 26 mg/dL (8-26) Creatinine 1.2 mg/dL (0.7-1.3) Estimated GFR (Cockcroft-Gault) 72.2 BUN/Creatinine Ratio 22 (6-20) H Glucose Level 111 mg/dL (70-99) H Calcium Level 9.5 mg/dL (8.5-10.1) Phosphorus Level 3.6 mg/dL (2.6-4.7) Magnesium Level 2.0 mg/dL (1.8-2.4) Total Bilirubin 1.0 mg/dL (0.2-1.0) Aspartate Amino Transferase (AST) 14 U/L (15-37) L Alanine Aminotransferase (ALT) 24 U/L (16-63) Alkaline Phosphatase 100 U/L (46-116) Troponin I Quantitative < 0.017 ng/mL (0-0.055) < 0.017 ng/mL (0-0.055) KQ-Zqk-I-Type Natriuretic Peptide 59 pg/mL (0-124) Total Protein 7.7 g/dL (6.4-8.2) Albumin 4.2 g/dL (3.4-5.0) Albumin/Globulin Ratio 1.2 (1.0-1.7) Urine Collection Type Unknown Urine Color Yellow Urine Clarity Clear Urine pH 7.0 Urine Specific Walton 1.015 Urine Protein Neg (NEG-TRACE) Urine Glucose (UA) Neg mg/dL (NEG) Urine Ketones (Stick) Trace mg/dL (NEG) Urine Blood Trace (NEG) Urine Nitrite Neg (NEG) Urine Bilirubin Neg (NEG) Urine Urobilinogen Dipstick 0.2 mg/dL (0.2 mg/dL) Urine Leukocyte Esterase Neg (NEG) Urine RBC 0 /HPF (0-2) Urine WBC 0 /HPF (0-4) Urine Squamous Epithelial Cells Occ /LPF Urine Bacteria 0 /HPF (0-FEW) Vital Signs: Vital Signs Date Time Temp Pulse Resp B/P (MAP) Pulse Ox O2 Delivery O2 Flow Rate FiO2 10/21/20 12:47 66 20 148/73 (98) 100 Room Air 10/21/20 10:13 97.1 EKG: EKG: Sinus rhythm right bundle branch block, no ST elevation or depression, unchanged from comparison to EKG dated 09-01-20 [] Radiology/Procedures: Radiology/Procedures: EXAM: CT angiography, abdomen and pelvis of the chest with intravenous contrast. HISTORY: Syncope. TECHNIQUE: Computed tomographic images of the chest, abdomen and pelvis were obtained following the administration of intravenous contrast according to angiography protocol. Multiplanar reformatting was performed and three dimensional maximum intensity projection images were obtained. *One or more of the following individualized dose reduction techniques were utilized for this examination: 1. Automated exposure control. 2. Adjustment of the mA and/or kV according to patient size. 3. Use of iterative reconstruction technique. COMPARISON: None. FINDINGS: Chest: The aorta is normal in caliber. There is no aortic dissection. The aortic arch great vessels are widely patent. No pathologically enlarged mediastinal or hilar lymph node is seen. There is no central pulmonary embolism. There is heterogeneous masslike enlargement of the right thyroid lobe and there are multiple small left thyroid nodules. This results in slight leftward deviation of the trachea. There is no pneumothorax or pleural effusion. There is mild pulmonary emphysema with biapical pleural parenchymal scarring. There are few tiny calcified granulomas. There is no infiltrate or suspicious pulmonary nodule. There is no suspicious osseous lesion or acute osseous finding. Abdomen and pelvis: There is a 7 mm suspected cyst within the posterior right hepatic lobe. There may also be a cyst within the right hepatic lobe near the falciform ligament. The gallbladder, pancreas, stomach and spleen are unremarkable. There is a heterogeneous enhancing left adrenal nodule measuring 4.8 cm. There are benign-appearing bilateral renal cortical cysts. There is no solid-appearing renal lesion or hydronephrosis. There is no appendicitis. There is distal colonic diverticulosis. There is asymmetric masslike thickening of the wall of the mid sigmoid:. There are calcifications in this location. There is no surrounding stranding to suggest acute colitis or diverticulitis. There are increased surrounding tiny pericolonic lymph nodes in this distribution. The prostate is heterogeneously enlarged. The bladder is unremarkable. There is no evidence of aortic aneurysm or dissection. There is aortobiiliac atherosclerosis. There is no suspicious or acute finding involving the lumbar spine or bony pelvis. IMPRESSION: 1. No acute thoracic, abdominal or pelvic finding. 2. Eccentric wall thickening and calcification involving the mid sigmoid colon with multiple small surrounding pericolonic lymph nodes. The possibility of neoplasm is not excluded. The imaging appearance does not favor diverticulitis or colitis. Correlate with colonoscopy findings 3. 4.8 cm left adrenal nodule, possibly metastatic given the aforementioned findings within the sigmoid colon. The possibility of a primary adrenal malignancy is not excluded. 4. Heterogeneous masslike enlargement of the right thyroid lobe superimposed on multiple thyroid nodules. This can be better assessed with a thyroid sonogram. 5. Mild pulmonary emphysema. 6. Small simple appearing renal cysts and hepatic cyst. Follow-up is not routinely performed for simple cysts. 7. Heterogeneous enlargement of the prostate. Correlate with PSA levels.[] Heart Score: C/O Chest Pain: No Risk Factors: Risk Factors: DM, Current or recent (<one month) smoker, HTN, HLP, family history of CAD, obesity. Risk Scores: Score 0 - 3: 2.5% MACE over next 6 weeks - Discharge Home Score 4 - 6: 20.3% MACE over next 6 weeks - Admit for Clinical Observation Score 7 - 10: 72.7% MACE over next 6 weeks - Early Invasive Strategies Course & Med Decision Making: Course & Med Decision Making Pertinent Labs and Imaging studies reviewed. (See chart for details) Discussed I recommend admission due to patient's age and positive orthostatic vital signs. Patient requesting go to [facility] due to his paper conservator being there. Contacted [facility] but they are full and cannot accept the patient. Discussed with our hospitalist, Dr. Alcantara, will accept patient as observation status. [] Eileen Disclaimer: Eileen Disclaimer: This electronic medical record was generated, in whole or in part, using a voice recognition dictation system. Departure Departure: Impression: Primary Impression: Syncope Disposition: ADMITTED INPATIENT Admitting Physician: Benton Alcantara Condition: STABLE Referrals: BROOKLYNN HINTON MD (PCP) UZIEL MEMBRENO MD Oct 21, 2020 15:16
[2020-10-21 15:38] VITALS: BP 155/75
--- NOTE | 2020-10-21 15:46 | NUR ---
PATIENT IS 70 Y O ARRIVED VIA EMS. A/O X4, ABLE TO AMBULATE INDEPENDENTLY, CURRENTLY DENIED ANY N/V, DENIED DIZZINESS AND PAIN. PATIENT WAS ORIENTED TO THE ROOM AND HOSPITAL POLICIES, BELONGINGS INVENTORIED.
[2020-10-21] MEDS ORDERED: PANT40TA3 PO (16:12)
[2020-10-21] MEDS ORDERED: ASPI-630 PO (16:12)
[2020-10-21] MEDS ORDERED: OXYB15TA18 PO (16:12)
[2020-10-21] MEDS: IV NORMAL SALINE 1,000ML 1,000 ML IV SCH (17:26)
--- NOTE | 2020-10-21 19:28 | HP ---
ADMIT DATE: 10/21/2020 ATTENDING PHYSICIAN: Dr. Alcantara. CHIEF COMPLAINT: Fainting. HISTORY OF PRESENT ILLNESS: The patient is a pleasant 70-year-old gentleman admitted through the ED with a syncopal episode earlier today. He was tired. He had some nausea. He may have had a vasovagal episode. He also takes hydrochlorothiazide. Clinically, he appeared mildly dehydrated. He had no neurological sequelae. The patient was evaluated in the ED, cardiac enzymes were negative. He was admitted then for further treatment and monitoring, IV hydration. He did have some orthostatic drop with a 30 mm drop in blood pressure. I suspect he was mildly dehydrated. He also had some nausea, which may have triggered a vasovagal episode. By the time I saw him, he was alert. Skin was warm and dry. He had no other symptoms. PAST MEDICAL HISTORY: His past medical history is significant for essential hypertension, recent UTI on Cipro. He also has some gastroesophageal reflux disease. MEDICATIONS: Current medicines include aspirin, CIPRO, oxybutynin, Protonix, Bactrim, the course is completed. He was also on Dyazide. SOCIAL HISTORY: He is a nonsmoker, nondrinker. He is still active. He retired from the . FAMILY HISTORY: His mom of congestive heart failure at age 75. Father also of heart disease in his late 70s. The patient had a workup, which I will review from the CT scan later this dictation. REVIEW OF SYSTEM: Significant for some mild weight loss according to the daughter. He has a daughter who is a physician here in town. No recent COVID exposure, fevers, chills, pain, shortness of breath. All other systems reviewed and determined to be negative. PHYSICAL EXAMINATION: GENERAL: When I saw him, this is a pleasant gentleman appearing younger than his stated age. VITAL SIGNS: Initial vital signs showed a blood pressure of 137/66. He did have some orthostatic drop upon standing. His oxygen saturation 100% on room air. He was afebrile, pulse 60 and regular. HEENT: Head is without trauma. Pupils are reactive. Sclerae nonicteric. Oropharynx clear. NECK: Supple. I tried to palpate any lesions or masses and it is hard to palpate at this time. I do not feel anything abnormal. There is no tracheal deviation. No stridor. LUNGS: Otherwise clear. CARDIOVASCULAR: Showed regular heart tones. No gallops. ABDOMEN: Soft. No guarding or rebound tenderness. EXTREMITIES: Show no cyanosis or edema. NEUROLOGIC: Focally intact. Speech is fluent. PERTINENT LABORATORY DATA AND X-RAY STUDIES: Admission hemoglobin was 14.5 g/dL. His white count is 7400. Electrolytes all within normal range. Nonfasting blood sugar was 111, creatinine 1.2. Two sets of cardiac enzymes negative for coronary ischemia. Liver panel was normal. He did have total body CT including chest, abdomen and pelvis. There is no active disease process in the chest. There is no blood clot; however, he does have a heterogeneous mass-like enlargement of the right thyroid lobe. Multiple left small thyroid nodules. There is also a 4.8 cm mass involving the left adrenal gland and there is some questionable wall thickness of the sigmoid colon. He tells me he has had a recent colonoscopy in the last three weeks. So, therefore, he has a documented right thyroid lobe mass along with left adrenal mass. The etiology is unclear at this time. ASSESSMENT: 1. A 70-year-old gentleman with syncopal episode. 2. Probably mild dehydration with vasovagal episode. 3. Incidental finding of a right thyroid mass. 4. Incidental finding of a left adrenal mass. 5. Abnormal sigmoid colon on CT, but according to his family, he had a normal colonoscopy 3 weeks ago at [facility]. PLAN: 1. Admit to the inpatient unit. 2. Gentle IV hydration. 3. Orthostatic blood pressure checks. 4. I shall schedule him for an outpatient PET scan through his primary care doctor's office. 5. Thyroid ultrasound. 6. We will go ahead and order a thyroid panel while he is here. 7. He would benefit with Endocrinology evaluation as an outpatient. PRISCILLA/GLADYS BECK: Natnaael TID: [id number] CC: BROOKLYNN HINTON MD
[2020-10-21 19:29] VITALS: BP 134/69
[2020-10-21 23:08] VITALS: BP 135/70
--- NOTE | 2020-10-22 04:43 | NUR ---
Pt has no c/o dizziness, pain; VS as noted. AM orthos as scheduled.
[2020-10-22] MEDS: IV NORMAL SALINE 1,000ML 1,000 ML IV SCH (05:15)
[2020-10-22 05:51] VITALS: BP 128/74
[2020-10-22 05:52] VITALS: BP 119/73
[2020-10-22 05:53] VITALS: BP 132/77
[2020-10-22 07:10] LABS: BASO % 1 % (0-3); EOS # 0.1 x10^3/uL (0.0-0.7); EOS % 1 % (0-3); HEMATOCRIT 40.6 % (39.0-53.0); HEMOGLOBIN 13.5 g/dL (13.0-17.5); LYMPH # 2.4 x10^3/uL (1.0-4.8); LYMPH % 39 % (24-48); MEAN CORPUSCULAR HEMOGLOBIN 30 pg (25-35); MEAN CORPUSCULAR HGB CONC 33 g/dL (31-37); MEAN CORPUSCULAR VOLUME 91 fL (79-100); MONO # 0.6 x10^3/uL (0.0-1.1); MONO % 10 % (0-9); NEUT % 50 % (31-73); PLATELET COUNT 281 x10^3/uL (140-400); RED BLOOD COUNT 4.44 x10^6/uL (4.30-5.70); RED CELL DISTRIBUTION WIDTH 13.9 % (11.5-14.5); WHITE BLOOD COUNT 6.1 x10^3/uL (4.0-11.0)
[2020-10-22 07:24] LABS: ALBUMIN 3.7 g/dL (3.4-5.0); ALBUMIN/GLOBULIN RATIO 1.2 (1.0-1.7); CALCIUM 8.7 mg/dL (8.5-10.1); GFR 89.1; TOTAL BILIRUBIN 1.1 mg/dL (0.2-1.0); TOTAL PROTEIN 6.8 g/dL (6.4-8.2)
[2020-10-22] MEDS ORDERED: ASPIRIN CHEWABLE 81 MG TABLET. PO SCH (09:00)
[2020-10-22] MEDS ORDERED: OXYBUTYNIN CHLORIDE 5 MG TABLET PO SCH (09:00)
[2020-10-22] MEDS ORDERED: PANTOPRAZOLE 40 MG TABLET. PO SCH (09:00)
--- NOTE | 2020-10-22 10:46 | NUR ---
DISCHARGE NOTE Pt discharged today by Dr. Alcantara. Pt and spouse verbalized understanding of discharge paperwork. All questions addressed. PT escorted out by and SENIOR DESIGN ENGINEERING SPECIALIST via WC. Pt ambulated into vehicle. VSS and GCS 15 upon DC. BROOK RN
--- NOTE | 2020-10-22 18:12 | DS ---
DATE OF DISCHARGE: 10/22/2020 ATTENDING PHYSICIAN: Dr. Alcantara. FINAL DISCHARGE DIAGNOSES: 1. Syncopal episode due to dehydration. 2. Mild orthostasis and dehydration. Rehydrated. 3. Incidental finding of right thyroid mass. Further workup in progress. 4. Incidental finding of 4.8 cm left adrenal mass. 5. History of psoriasis. 6. Previous history of coronary artery disease. 7. Probable vasovagal episode. HISTORY AND PHYSICAL: The patient is a very pleasant 70-year-old gentleman still active, retired . He presented to the ED with a syncopal episode. He passed out. He appeared mildly dehydrated. He had some recent nausea. He was monitored, given IV fluids. He had a 30 mm drop in orthostatic blood pressure. As part of the workup, he also had total body CT scan including chest, abdomen and pelvis. There is incidental finding of a right thyroid nodule along with a 4.8 cm left adrenal mass, whether or not this is a contributory or serendipitous remains to be seen. The patient also notes that in the last several months, he has had a 25-pound weight loss and he has not been on a diet. He had been on hydrochlorothiazide and triamterene, this was held. PHYSICAL EXAMINATION: Please see my dictated note. PERTINENT LABORATORY AND X-RAY STUDIES: His admission hemoglobin is 14.5 g/dL, white count 7400. Electrolytes show normal sodium 141 mEq per liter, potassium 4.0, creatinine is 1.0 mg percent. Bilirubin is 1.1. Transaminases are normal. Nonfasting blood sugar 90. Liver panel, total protein are normal. Three sets of cardiac enzymes are negative for coronary ischemia. I did send out a thyroid panel, T3, T4 and TSH. Unfortunately, this is still pending at the time of discharge. COURSE IN THE HOSPITAL: The patient was admitted to the hospitalist service. He was placed on telemetry. He had a stable rhythm. We stopped his triamterene/hydrochlorothiazide and I continued gentle IV hydration with saline. He felt better. Diet was advanced. By the next hospital day, his blood pressure was stable at 132/77, pulse was regular at 70 per minute. He was afebrile and oxygen saturation 98% on room air. Lungs were clear and his heart tones were regular without any gallops or murmurs. At this time, he is ready for discharge and I made the following recommendations and regarding followup evaluation with the abnormal findings on CT scan. I will contact Dr. Hinton, his primary care physician, this coming Saturday and try to set up an outpatient evaluation. At this time, I recommend a PET scan to be done as an outpatient, a thyroid ultrasound and also a referral to see transportation agent regarding further workup. In the meantime, I will track down his thyroid panel. Clinically, he does not appear hyperthyroid at this time. OTHER DISCHARGE MEDICATIONS: Include amlodipine which will be continued, aspirin daily, oxybutynin and Stelara injections for his psoriasis. The patient was then discharged from our hospital in stable condition with explicit instructions and followup care. VALERIO DR: Natanael TID: [id number] CC: BROOKLYNN HINTON MD
[2020-10-23 03:10] LABS: THYROXINE 11.5 ug/dL (4.5-12.0)
== END 2020-10-22 10:55 | disposition home or self-care (01) ==
LOC: ER 09:36 → 1 SOUTH 14:14
PROVIDERS: ADMIT Hospitalist; ATTEND Hospitalist
DX: R55 Syncope and collapse (principal); E86.0 Dehydration; E04.1 Nontoxic single thyroid nodule; D35.02 Benign neoplasm of left adrenal gland; I10 Essential (primary) hypertension; N40.0 Benign prostatic hyperplasia without lower urinary tract symptoms; L40.9 Psoriasis, unspecified; I25.10 Atherosclerotic heart disease of native coronary artery without angina pectoris; F17.210 Nicotine dependence, cigarettes, uncomplicated; J43.9 Emphysema, unspecified; E78.5 Hyperlipidemia, unspecified; N28.1 Cyst of kidney, acquired; E11.9 Type 2 diabetes mellitus without complications; K76.89 Other specified diseases of liver; N32.81 Overactive bladder; E04.2 Nontoxic multinodular goiter; E27.9 Disorder of adrenal gland, unspecified; Z98.890 Other specified postprocedural states; Z79.82 Long term (current) use of aspirin
CPT/HCPCS: 36415; 71046; 71275; 74174; 80053; 81001; 82947; 83735; 83880; 84100; 84436; 84443; 84480; 84484; 85025; 85379; 93005; 96360; 96361; 99285; G0378; J7030; Q9967; G0379

== ENCOUNTER → 2020-11-25 | Outpatient (CLI) | payer MEDICARE, OTHER ==
[~2020-11-25] MED LIST changes: +ASPI-630 PO; +OXYB15TA18 PO; +PANT40TA3 PO
--- NOTE | 2020-11-25 15:58 | RAD ---
2 views of the right foot for pain after stepping wrong, pain is laterally. FINDINGS: There is no oblique fracture through the fifth metatarsal diaphysis which is nondisplaced. No other fracture or acute osseous abnormality is seen. Mild hallux valgus deformity. IMPRESSION: 1. Nondisplaced oblique fracture through the fifth metatarsal diaphysis. Electronically signed by: Valdemar Walker MD (11/25/2020 3:56 PM) [id number]
== END ==
LOC: RAD 13:58
PROVIDERS: ATTEND Physician Assistant
DX: S92.354A Nondisplaced fracture of fifth metatarsal bone, right foot, initial encounter for closed fracture (principal); X58.XXXA Exposure to other specified factors, initial encounter; Y93.89 Activity, other specified; Y92.89 Other specified places as the place of occurrence of the external cause; Y99.8 Other external cause status
CPT/HCPCS: 73620